=== PATIENT | male | born 1985 | race African-American/Black ===

== ENCOUNTER 2018-06-04 20:59 | Emergency (ER) | payer OTHER ==
[2018-06-04 21:03] VITALS: BP 136/76; PULSE 80; TEMP 97.5; BMI 36.8
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
--- NOTE | 2018-06-05 00:58 | PDOC ---
*Physical Exam - Vital Signs Last Vital Signs Temp Pulse Resp BP Pulse Ox 97.5 F L 80 18 136/76 97 06/04/18 21:01 06/04/18 21:01 06/04/18 21:01 06/04/18 21:01 06/04/18 21:01 Progress Note - Progress Note Progress Note: CAT scan left wrist without contrast: Contour irregularity lateral aspect of distal radial metaphysis possibly due to chronic heel fracture. Displaced ulnar styloid compatible with fracture of unknown age. dislocation. Procedure: Sugar tong left forearm 5 inch fiberglass/(2) 3" kendall wrap *DC/Admit/Observation/Transfer Diagnosis at time of Disposition: Closed head injury Qualifiers: Encounter type: initial encounter Qualified Code(s): S09.90XA - Unspecified injury of head, initial encounter Wrist fracture, left Qualifiers: Encounter type: initial encounter Fracture type: closed Qualified Code(s): S62.102A - Fracture of unspecified carpal bone, left wrist, initial encounter for closed fracture - Discharge Dispostion Condition at time of disposition: Stable Decision to Admit order: No - Referrals Referrals: Chirag Alexander MD [Staff Physician] - - Patient Instructions Printed Discharge Instructions: DI for Wrist Fracture, DI for Closed Head Injury Additional Instructions: Ice; 20 mins on alternating with 20 mins off for 48 hours while awake. Rest Elevate Follow up with your orthopedic surgeon or the one listed on the discharge form. Return to the ER for severe/persistent/worsening symptoms, extremity numbness/ tingling sensation. - Post Discharge Activity
== END 2018-06-05 01:10 | disposition home or self-care (01) ==
LOC: JER 20:59 → JERFT 20:59 → JER 06-05 01:10
DX: S63.502A Unspecified sprain of left wrist, initial encounter (principal); V43.52XA Car driver injured in collision with other type car in traffic accident, initial encounter; Y93.89 Activity, other specified; Y92.410 Unspecified street and highway as the place of occurrence of the external cause; S09.90XA Unspecified injury of head, initial encounter
CPT/HCPCS: 70450-TC; 73110-TC-LR-FY; 73110-TC-RT-FY; 73200-TC-RT; 99281-25